=== PATIENT | female | born 1945 | race African-American/Black ===

== ENCOUNTER 2019-03-26 23:03 | Inpatient (IN) ==
[2019-03-27] MEDS ORDERED: SODIUM CHLORIDE 0.9% 1,000 ML IV STA (01:34)
[2019-03-27] MEDS ORDERED: ACETAMINOPHEN 500 MG TABLET PO STA (02:49)
[2019-03-27] MEDS ORDERED: ACETAMINOPHEN 500 MG TABLET ONE (03:57)
[2019-03-27 04:01] LABS: Basophils % 0.4 % (0.0-0.8); Eosinophils % 0.2 % (0.00-10.9); Hematocrit 38.7 VOL% (35.7-47.0); Immature Granulocytes % 0.5 %; Immature Granulocytes Absolute 0.04 #; Lymphocytes # 0.8 10*3/uL (1.4-4.0); Lymphocytes % 9.6 % (21.3-54.2); Mean Corpuscular Volume 85.2 FL (87-102); Mean Platelet Volume 9.7 FL (9.6-12.0); Monocytes % 16.7 % (1.7-12.7); Neutrophils % 72.6 % (38.7-73.9); Platelet Count 216 T/CUMM (130-400); Red Blood Count 4.54 MC/CUMM (3.8-5.5); Red Cell Distribution Width 18.2 % (9.3-17.3)
[2019-03-27 04:19] LABS: Albumin 3.4 G/DL (3.4-5.0); Bilirubin,Total 1.3 MG/DL (0.2-1.0); Calcium 9.5 MG/DL (8.5-10.1); Osmolality,Calculated 279.8 MOS/KG (273-304); Total Protein 8.1 G/DL (6.4-8.3)
[2019-03-27 04:42] LABS: Anisocytosis 1+; Eosinophils 1 % (0-10); Lymphocytes 7 % (20-55); Segmented Neutrophils 73 % (50-85); Total Cells Counted 100
[2019-03-27 04:43] LABS: Hypochromasia 1+; Microcytosis Slight; Platelet Estimate Normal; Schistocytes Few
[2019-03-27] MEDS ORDERED: DEXTROSE 50% 25 GM/50 ML VIAL IV PRN ×2 (05:44)
[2019-03-27] MEDS ORDERED: ONDANSETRON 4 MG/2 ML VIAL IV PRN (05:44)
[2019-03-27] MEDS ORDERED: GLUCAGON 1 MG VIAL IM PRN ×2 (05:44)
[2019-03-27 05:49] LABS: Amorphous Crystals,Urine Few /HPF (Few); Apearance,Urine CLEAR (Clear); Bacteria,Urine Many /HPF (Few); Bilirubin,Urine Negative (Negative); Blood, Urine Small mg/dL (Negative); Glucose,Urine (UA) Negative (Negative); Ketones,Urine 20 mg/dL (Negative); Mucus,Urine Few /LPF (Occasional); Nitrite,Urine Positive (Negative); Protein,Urine 30 MG/DL; RBC,Urine 2 /HPF (0-4); Squamous Epithelial Cell,Urine Occasional /HPF (0-10); Urine Color Yellow (Yellow); WBC,Urine 7 /HPF (0-6)
[2019-03-27] MEDS: ALBUTEROL/IPRATROPIUM 3 ML NEB RESP TX SCH ×3 (07:27→19:42)
[2019-03-27] MEDS: INSULIN REGULAR 100 UNIT/ML SUBCUT SCH ×4 (07:51→22:21)
[2019-03-27] MEDS: SODIUM CHLORIDE 0.9% 1,000 ML IV SCH (08:16)
[2019-03-27] MEDS: LEVOFLOXACIN INJ 750 MG in PREMIX 1 EACH IV SCH (08:16)
[2019-03-27] MEDS: POTASSIUM CHLORIDE 20 MEQ TABLET PO PRN ×4 (08:16→16:10)
[2019-03-27] MEDS: ENOXAPARIN 40 MG/0.4 ML SYRINGE SUBCUT SCH (08:16)
[2019-03-27] MEDS: ACETAMINOPHEN 325 MG TABLET PO PRN ×2 (14:06→18:14)
[2019-03-28] MEDS: SODIUM CHLORIDE 0.9% 1,000 ML IV SCH ×2 (01:00→15:36)
[2019-03-28] MEDS: ALBUTEROL/IPRATROPIUM 3 ML NEB RESP TX SCH ×4 (01:09→19:51)
[2019-03-28] MEDS: ACETAMINOPHEN 325 MG TABLET PO PRN (04:56)
[2019-03-28 04:59] LABS: Basophils % 0.1 % (0.0-0.8); Eosinophils % 0.1 % (0.00-10.9); Hematocrit 35.4 VOL% (35.7-47.0); Hemoglobin 11.1 GM/DL (12.0-16.0); Immature Granulocytes % 1.5 %; Immature Granulocytes Absolute 0.12 #; Mean Corpuscular HGB Conc 31.4 GM/DL (32-36); Mean Corpuscular Volume 86.1 FL (87-102); Mean Platelet Volume 11.5 FL (9.6-12.0); Neutrophils % 70.3 % (38.7-73.9); Platelet Count 193 T/CUMM (130-400); Red Blood Count 4.11 MC/CUMM (3.8-5.5); Red Cell Distribution Width 18.5 % (9.3-17.3); White Blood Count 7.9 T/CUMM (4-12)
[2019-03-28] MEDS: LEVOFLOXACIN INJ 750 MG in PREMIX 1 EACH IV SCH (05:03)
[2019-03-28 05:22] LABS: Albumin 2.9 G/DL (3.4-5.0); Bilirubin,Total 0.8 MG/DL (0.2-1.0); Calcium 8.7 MG/DL (8.5-10.1); Osmolality,Calculated 274.8 MOS/KG (273-304); Total Protein 7.4 G/DL (6.4-8.3)
[2019-03-28 06:12] LABS: Band Neutrophils 3 % (0-10); Lymphocytes 13 % (20-55); Myelocytes 1 %; Segmented Neutrophils 70 % (50-85); Total Cells Counted 100
[2019-03-28 06:13] LABS: Acanthocytes Few; Anisocytosis 1+; Burr Cells 1+; Ovalocytes 1+; Platelet Estimate Normal
[2019-03-28] MEDS: POTASSIUM CHLORIDE 20 MEQ TABLET PO PRN ×2 (06:26→08:28)
[2019-03-28] MEDS: INSULIN REGULAR 100 UNIT/ML SUBCUT SCH ×4 (06:56→21:46)
[2019-03-28] MEDS: ENOXAPARIN 40 MG/0.4 ML SYRINGE SUBCUT SCH (08:28)
[2019-03-28] MEDS ORDERED: COD LIVER OIL PO SCH (10:15)
[2019-03-28] MEDS: amLODIPine 10 MG TABLET PO SCH (10:52)
[2019-03-28] MEDS: FOLIC ACID 1 MG TABLET PO SCH (10:52)
[2019-03-28] MEDS: MEROPENEM 500 MG in SODIUM CHLORIDE 0.9% 100 ML IV SCH ×3 (10:52→21:26)
[2019-03-28] MEDS: ASPIRIN 325 MG TABLET PO SCH (10:52)
[2019-03-28] MEDS: PANTOPRAZOLE 40 MG TABLET PO SCH (10:52)
[2019-03-28] MEDS: CALCIUM (CARBONATE)/VITAMIN D 600 MG-400 UNIT TABLET PO SCH (10:52)
[2019-03-28] MEDS: BENZONATATE 100 MG CAPSULE PO PRN (21:26)
[2019-03-29] MEDS: ALBUTEROL/IPRATROPIUM 3 ML NEB RESP TX SCH ×4 (01:17→20:12)
[2019-03-29] MEDS: MEROPENEM 500 MG in SODIUM CHLORIDE 0.9% 100 ML IV SCH ×4 (04:28→21:54)
[2019-03-29 05:44] LABS: Basophils % 0.3 % (0.0-0.8); Eosinophils # 0.2 10*3/uL (0.0-0.87); Eosinophils % 2.2 % (0.00-10.9); Hematocrit 31.1 VOL% (35.7-47.0); Hemoglobin 9.6 GM/DL (12.0-16.0); Immature Granulocytes % 0.7 %; Immature Granulocytes Absolute 0.05 #; Lymphocytes # 1.8 10*3/uL (1.4-4.0); Lymphocytes % 24.2 % (21.3-54.2); Mean Corpuscular HGB Conc 30.9 GM/DL (32-36); Mean Corpuscular Volume 86.4 FL (87-102); Mean Platelet Volume 10.5 FL (9.6-12.0); Monocytes % 16.2 % (1.7-12.7); Neutrophils % 56.4 % (38.7-73.9); Platelet Count 175 T/CUMM (130-400); Red Cell Distribution Width 18.5 % (9.3-17.3); White Blood Count 7.4 T/CUMM (4-12)
[2019-03-29 06:10] LABS: Anisocytosis 1+; Band Neutrophils 1 % (0-10); Hypochromasia Slight; Lymphocytes 28 % (20-55); Platelet Estimate Normal; Segmented Neutrophils 61 % (50-85); Total Cells Counted 100
[2019-03-29 06:11] LABS: Acanthocytes Few; Microcytosis 1+; Ovalocytes Few
[2019-03-29 06:12] LABS: Burr Cells Slight
[2019-03-29 06:17] LABS: Calcium 8.5 MG/DL (8.5-10.1); Osmolality,Calculated 274.5 MOS/KG (273-304)
[2019-03-29 06:21] LABS: Risk Ratio 3.76; VLDL CHOLESTEROL 14.4 MG/DL
[2019-03-29] MEDS: POTASSIUM CHLORIDE 20 MEQ TABLET PO PRN ×3 (06:28→14:30)
[2019-03-29] MEDS: SODIUM CHLORIDE 0.9% 1,000 ML IV SCH (07:48)
[2019-03-29] MEDS: INSULIN REGULAR 100 UNIT/ML SUBCUT SCH ×4 (10:02→23:58)
[2019-03-29] MEDS: amLODIPine 10 MG TABLET PO SCH (10:02)
[2019-03-29] MEDS: CALCIUM (CARBONATE)/VITAMIN D 600 MG-400 UNIT TABLET PO SCH (10:02)
[2019-03-29] MEDS: ASPIRIN 325 MG TABLET PO SCH (10:03)
[2019-03-29] MEDS: FOLIC ACID 1 MG TABLET PO SCH (10:03)
[2019-03-29] MEDS: ENOXAPARIN 40 MG/0.4 ML SYRINGE SUBCUT SCH (10:03)
[2019-03-29] MEDS: PANTOPRAZOLE 40 MG TABLET PO SCH (10:03)
[2019-03-29] MEDS ORDERED: MAGNESIUM SULF RIDER 4 GM in PREMIX 1 EACH IV PRN (12:14)
[2019-03-29] MEDS ORDERED: MAGNESIUM SULF RIDER 2 GM in PREMIX 1 EACH IV PRN (12:14)
[2019-03-29] MEDS ORDERED: POTASSIUM CHLORIDE RIDER 10 MEQ in PREMIX 1 EACH IV PRN (12:14)
[2019-03-29] MEDS: BENZONATATE 100 MG CAPSULE PO PRN ×2 (14:30→21:52)
[2019-03-29] MEDS: FUROSEMIDE 40 MG/4 ML VIAL IV SCH (18:42)
[2019-03-29] MEDS: VANCOMYCIN INJ 1,000 MG in SODIUM CHLORIDE 0.9% 250 ML IV SCH (18:42)
[2019-03-30] MEDS: ALBUTEROL/IPRATROPIUM 3 ML NEB RESP TX SCH ×4 (00:35→19:32)
[2019-03-30] MEDS: VANCOMYCIN INJ 1,000 MG in SODIUM CHLORIDE 0.9% 250 ML IV SCH ×2 (00:47→13:25)
[2019-03-30] MEDS: MEROPENEM 500 MG in SODIUM CHLORIDE 0.9% 100 ML IV SCH ×4 (04:17→23:21)
[2019-03-30 06:20] LABS: Basophils % 0.4 % (0.0-0.8); Eosinophils # 0.4 10*3/uL (0.0-0.87); Eosinophils % 6.1 % (0.00-10.9); Hematocrit 30.1 VOL% (35.7-47.0); Hemoglobin 9.3 GM/DL (12.0-16.0); Immature Granulocytes % 0.9 %; Immature Granulocytes Absolute 0.06 #; Lymphocytes # 2.4 10*3/uL (1.4-4.0); Lymphocytes % 35.6 % (21.3-54.2); Mean Corpuscular HGB Conc 30.9 GM/DL (32-36); Mean Corpuscular Volume 86.5 FL (87-102); Mean Platelet Volume 10.7 FL (9.6-12.0); Monocytes % 12.7 % (1.7-12.7); Neutrophils % 44.3 % (38.7-73.9); Platelet Count 200 T/CUMM (130-400); Red Blood Count 3.48 MC/CUMM (3.8-5.5); Red Cell Distribution Width 18.9 % (9.3-17.3); White Blood Count 6.7 T/CUMM (4-12)
[2019-03-30 06:46] LABS: Albumin 2.4 G/DL (3.4-5.0); Bilirubin,Total 0.6 MG/DL (0.2-1.0); Calcium 8.3 MG/DL (8.5-10.1); Total Protein 5.7 G/DL (6.4-8.3)
[2019-03-30 07:00] LABS: Acanthocytes Few; Eosinophils 7 % (0-10); Lymphocytes 34 % (20-55); Segmented Neutrophils 50 % (50-85); Total Cells Counted 100
[2019-03-30 07:02] LABS: Anisocytosis 1+; Hypochromasia 1+; Microcytosis 1+
[2019-03-30 07:03] LABS: Burr Cells Slight; Ovalocytes Slight; Platelet Estimate Normal
[2019-03-30] MEDS: INSULIN REGULAR 100 UNIT/ML SUBCUT SCH ×3 (07:50→16:13)
[2019-03-30] MEDS: ASPIRIN 325 MG TABLET PO SCH (08:49)
[2019-03-30] MEDS: CALCIUM (CARBONATE)/VITAMIN D 600 MG-400 UNIT TABLET PO SCH (08:49)
[2019-03-30] MEDS: FUROSEMIDE 40 MG/4 ML VIAL IV SCH ×2 (08:49→15:47)
[2019-03-30] MEDS: amLODIPine 10 MG TABLET PO SCH (08:49)
[2019-03-30] MEDS: FOLIC ACID 1 MG TABLET PO SCH (08:49)
[2019-03-30] MEDS: ENOXAPARIN 40 MG/0.4 ML SYRINGE SUBCUT SCH (08:49)
[2019-03-30] MEDS: PANTOPRAZOLE 40 MG TABLET PO SCH (08:49)
[2019-03-30] MEDS: POTASSIUM CHLORIDE 20 MEQ TABLET PO PRN ×2 (16:17→17:56)
[2019-03-31] MEDS: INSULIN REGULAR 100 UNIT/ML SUBCUT SCH ×3 (00:36→11:42)
[2019-03-31] MEDS: ALBUTEROL/IPRATROPIUM 3 ML NEB RESP TX SCH ×2 (01:19→07:22)
[2019-03-31] MEDS: VANCOMYCIN INJ 1,000 MG in SODIUM CHLORIDE 0.9% 250 ML IV SCH (01:35)
[2019-03-31] MEDS: MEROPENEM 500 MG in SODIUM CHLORIDE 0.9% 100 ML IV SCH ×2 (03:55→10:30)
[2019-03-31 05:24] LABS: Basophils % 0.3 % (0.0-0.8); Eosinophils # 0.4 10*3/uL (0.0-0.87); Eosinophils % 6.1 % (0.00-10.9); Hematocrit 31.7 VOL% (35.7-47.0); Hemoglobin 9.6 GM/DL (12.0-16.0); Immature Granulocytes % 0.9 %; Immature Granulocytes Absolute 0.06 #; Lymphocytes # 2.6 10*3/uL (1.4-4.0); Mean Corpuscular HGB Conc 30.3 GM/DL (32-36); Mean Corpuscular Volume 87.1 FL (87-102); Monocytes % 15.1 % (1.7-12.7); Neutrophils % 37.6 % (38.7-73.9); Platelet Count 228 T/CUMM (130-400); Red Blood Count 3.64 MC/CUMM (3.8-5.5); Red Cell Distribution Width 18.9 % (9.3-17.3); White Blood Count 6.4 T/CUMM (4-12)
[2019-03-31 05:44] LABS: Albumin 2.2 G/DL (3.4-5.0); Bilirubin,Total 0.4 MG/DL (0.2-1.0); Calcium 8.5 MG/DL (8.5-10.1); Osmolality,Calculated 280.1 MOS/KG (273-304); Total Protein 5.8 G/DL (6.4-8.3)
[2019-03-31 06:18] LABS: Acanthocytes 2+; Band Neutrophils 2 % (0-10); Eosinophils 7 % (0-10); Lymphocytes 42 % (20-55); Ovalocytes 2+; Platelet Estimate Normal; Segmented Neutrophils 34 % (50-85); Total Cells Counted 100
[2019-03-31] MEDS ORDERED: MAGNESIUM SULF RIDER 4 GM in PREMIX 1 EACH IV ONE (08:18)
[2019-03-31] MEDS ORDERED: POTASSIUM CHLORIDE 20 MEQ TABLET PO ONE (08:18)
[2019-03-31] MEDS: PANTOPRAZOLE 40 MG TABLET PO SCH (08:51)
[2019-03-31] MEDS: ASPIRIN 325 MG TABLET PO SCH (08:52)
[2019-03-31] MEDS: CALCIUM (CARBONATE)/VITAMIN D 600 MG-400 UNIT TABLET PO SCH (08:52)
[2019-03-31] MEDS: FOLIC ACID 1 MG TABLET PO SCH (08:52)
[2019-03-31] MEDS: amLODIPine 10 MG TABLET PO SCH (08:53)
[2019-03-31] MEDS: ENOXAPARIN 40 MG/0.4 ML SYRINGE SUBCUT SCH (08:53)
[2019-03-31] MEDS: FUROSEMIDE 40 MG/4 ML VIAL IV SCH (08:57)
[2019-03-31 11:53] VITALS: BP 118/56
== END 2019-03-31 13:00 | disposition home health service (06) | DRG 194 ==
LOC: N.ED 23:03 → N.EDINP 03-27 05:44 → N.3E 03-27 06:12
PROVIDERS: ADMIT Internal Medicine; ATTEND Internal Medicine